=== PATIENT | female | born 1970 | race Hispanic/Latino ===

== ENCOUNTER 2023-09-27 17:27 | Inpatient (IN) | payer OTHER, BC ==
[~2023-09-27] VITALS: Ht 160 cm; Wt 78.3 kg
[2023-09-27 18:19] LABS: HEMATOCRIT 35.1 % (36-48); MEAN CORPUSCULAR HEMOGLOBIN 29.9 pg (27.0-33.0); MEAN CORPUSCULAR HGB CONC 34.8 g/dL (32.0-36.0); RED BLOOD CELL COUNT(AUTO) 4.08 MIL/uL (4.00-5.50); RED CELL DISTRIBUTION WIDTH 12.8 % (11.0-15.5)
[2023-09-27] MEDS: MORPHINE 2 MG SYG IVP ONE (18:25)
[2023-09-27] MEDS: LACTATED RINGERS 1000ML 1,000 ML IV ONE (18:25)
[2023-09-27 18:32] LABS: INR 0.94 (0.85-1.15); PROTHROMBIN TIME 11.1 SEC (9.6-11.6)
[2023-09-27 18:35] LABS: CREATININE 0.7 mg/dL (0.5-1.0); POTASSIUM 3.3 mmol/L (3.5-5.1)
[2023-09-27] MEDS ORDERED: POTASSIUM CHLORIDE 10% ELIXIR 20 MEQ/15 ML UDCUP PO PRN (19:00)
[2023-09-27] MEDS ORDERED: POTASSIUM CHLORIDE 20MEQ/100ML 100 ML IV PRN (19:00)
[2023-09-27] MEDS ORDERED: ACETAMINOPHEN 325 MG TAB PO PRN ×2 (19:00)
[2023-09-27] MEDS: FAMOTIDINE 20MG VIAL IV SCH (20:25)
[2023-09-27] MEDS: LACTATED RINGERS 1000ML 1,000 ML IV SCH (20:26)
[2023-09-27] MEDS: MORPHINE 4 MG SYG IV PRN (20:26)
[2023-09-27 21:40] VITALS: O2SAT 98
[2023-09-27 21:58] VITALS: BP 119/71; PULSE 63; RESP 16
[2023-09-27] MEDS: KCL 20 MEQ ERTAB PO PRN (23:57)
[2023-09-28] VITALS (12 sets, daily range): BP systolic 115–139; BP diastolic 63–80; PULSE 61–79; RESP 16–19; O2SAT 94–98
[2023-09-28] MEDS: ONDANSETRON 4MG INJ IV PRN (01:04)
[2023-09-28 06:11] LABS: BASOPHILS # (AUTO) 0.03 K/uL (0.00-0.20); BASOPHILS % (AUTO) 0.4 % (0.0-5.0); EOSINOPHILS # (AUTO) 0.02 K/uL (0.00-0.70); EOSINOPHILS % (AUTO) 0.2 % (0.0-8.0); HEMATOCRIT 33.9 % (36-48); IMMATURE GRANULOCYTE ABSOLUTE 0.05 K/uL (0-1); LYMPHOCYTES # (AUTO) 1.8 K/uL (1.0-4.8); LYMPHOCYTES % (AUTO) 22.1 % (21.0-51.0); MEAN CORPUSCULAR HEMOGLOBIN 29.6 pg (27.0-33.0); MEAN CORPUSCULAR HGB CONC 34.5 g/dL (32.0-36.0); MEAN CORPUSCULAR VOLUME 85.8 fL (79-99); MONOCYTES # (AUTO) 0.4 K/uL (0.1-1.0); MONOCYTES % (AUTO) 5.1 % (3.0-13.0); NEUTROPHILS # (AUTO) 5.8 K/uL (1.8-7.7); NEUTROPHILS % (AUTO) 71.6 % (40.0-77.0); PLATELET COUNT (AUTO) 245 K/uL (130-400); RED BLOOD CELL COUNT(AUTO) 3.95 MIL/uL (4.00-5.50); RED CELL DISTRIBUTION WIDTH 12.8 % (11.0-15.5)
[2023-09-28 06:20] LABS: CREATININE 0.5 mg/dL (0.5-1.0); MAGNESIUM 1.9 mg/dL (1.80-2.40); PHOSPHORUS 3.8 mg/dL (2.5-4.9); POTASSIUM 3.3 mmol/L (3.5-5.1)
[2023-09-28] MEDS: MORPHINE 2 MG SYG IV PRN (08:01)
[2023-09-29] VITALS (25 sets, daily range): BP systolic 99–131; BP diastolic 50–77; PULSE 59–84; RESP 11–20; O2SAT 97–98
[2023-09-29 06:28] LABS: BASOPHILS # (AUTO) 0.04 K/uL (0.00-0.20); BASOPHILS % (AUTO) 0.5 % (0.0-5.0); EOSINOPHILS # (AUTO) 0.07 K/uL (0.00-0.70); EOSINOPHILS % (AUTO) 0.9 % (0.0-8.0); HEMATOCRIT 37.1 % (36-48); LYMPHOCYTES # (AUTO) 1.5 K/uL (1.0-4.8); LYMPHOCYTES % (AUTO) 18.9 % (21.0-51.0); MEAN CORPUSCULAR HEMOGLOBIN 29.9 pg (27.0-33.0); MEAN CORPUSCULAR VOLUME 87.9 fL (79-99); MONOCYTES # (AUTO) 0.6 K/uL (0.1-1.0); MONOCYTES % (AUTO) 7.1 % (3.0-13.0); NEUTROPHILS # (AUTO) 5.7 K/uL (1.8-7.7); NEUTROPHILS % (AUTO) 71.3 % (40.0-77.0); PLATELET COUNT (AUTO) 226 K/uL (130-400); RED BLOOD CELL COUNT(AUTO) 4.22 MIL/uL (4.00-5.50); RED CELL DISTRIBUTION WIDTH 13.1 % (11.0-15.5); WHITE BLOOD COUNT (AUTO) 7.9 K/uL (4.8-10.8)
[2023-09-29 06:41] LABS: ALBUMIN 3.7 g/dL (3.5-5.0); BILIRUBIN,TOTAL 1.1 mg/dL (0.2-1.0); CREATININE 0.5 mg/dL (0.5-1.0); MAGNESIUM 1.6 mg/dL (1.80-2.40); POTASSIUM 3.8 mmol/L (3.5-5.1); TOTAL PROTEIN, SERUM 7.6 g/dL (6.0-8.3)
[2023-09-29 06:56] LABS: INR <= 0.93 (0.85-1.15)
[2023-09-29 06:58] LABS: PARTIAL THROMBOPLASTIN TIME 26.7 SEC (26.3-35.5)
[2023-09-29] MEDS: MAGNESIUM 2GM PREMIX 50ML 50 ML IV PRN (08:00)
[2023-09-29] MEDS ORDERED: MAGNESIUM 2GM PREMIX 50ML 50 ML IV SCH (08:00)
[2023-09-29] MEDS: CEFAZOLIN SODIUM 1 GM VIAL IVPB SCH (12:00)
[2023-09-29] MEDS ORDERED: LIDOCAINE HCL-MPF 1% 5ML AMP IJ ONE (16:09)
[2023-09-29] MEDS ORDERED: PROPOFOL 10 MG/ML 20ML VIAL IV ONE (16:10)
[2023-09-29] MEDS ORDERED: ROCURONIUM BROMIDE 10MG/1ML 5ML VL ONE (16:10)
[2023-09-29] MEDS ORDERED: MIDAZOLAM HCL 1 MG/ML 2ML VIAL ONE (16:10)
[2023-09-29] MEDS ORDERED: FENTANYL CITRATE PF 50 MCG/1 ML 2ML VIAL ONE ×2 (16:10→21:06)
[2023-09-29] MEDS ORDERED: ROPIVACAINE 0.5% 5MG/ML 30ML ONE (19:43)
[2023-09-29] MEDS ORDERED: DEXAMETHASONE SOD PHOSPHATE 10MG/ML 1ML VIAL ONE (19:44)
[2023-09-29] MEDS ORDERED: ONDANSETRON 4MG INJ ONE (19:44)
[2023-09-29] MEDS ORDERED: PHENYLEPHRINE HCL 10 MG/ML 1ML VIAL IV ONE (19:45)
[2023-09-29] MEDS: CEFAZOLIN SODIUM 1 GM VIAL IVPB ONE (20:30)
[2023-09-29] MEDS ORDERED: NEOSTIGMINE METHYLSULFATE 1MG/ML IV ONE (21:06)
[2023-09-29] MEDS ORDERED: GLYCOPYRROLATE 0.2 MG/ML 5 ML VIAL ONE (21:06)
[2023-09-30] VITALS (12 sets, daily range): BP systolic 91–118; BP diastolic 50–72; PULSE 56–74; RESP 16–24; O2SAT 96–99
[2023-09-30 05:20] LABS: BASOPHILS # (AUTO) 0.01 K/uL (0.00-0.20); BASOPHILS % (AUTO) 0.1 % (0.0-5.0); HEMATOCRIT 34.9 % (36-48); IMMATURE GRANULOCYTE ABSOLUTE 0.07 K/uL (0-1); LYMPHOCYTES # (AUTO) 0.7 K/uL (1.0-4.8); LYMPHOCYTES % (AUTO) 9.6 % (21.0-51.0); MEAN CORPUSCULAR HGB CONC 34.7 g/dL (32.0-36.0); MEAN CORPUSCULAR VOLUME 86.6 fL (79-99); MONOCYTES # (AUTO) 0.1 K/uL (0.1-1.0); MONOCYTES % (AUTO) 1.4 % (3.0-13.0); NEUTROPHILS # (AUTO) 6.5 K/uL (1.8-7.7); PLATELET COUNT (AUTO) 232 K/uL (130-400); RED BLOOD CELL COUNT(AUTO) 4.03 MIL/uL (4.00-5.50); RED CELL DISTRIBUTION WIDTH 12.8 % (11.0-15.5); WHITE BLOOD COUNT (AUTO) 7.4 K/uL (4.8-10.8)
[2023-09-30 05:48] LABS: ALBUMIN 3.4 g/dL (3.5-5.0); BILIRUBIN,TOTAL 0.6 mg/dL (0.2-1.0); CREATININE 0.6 mg/dL (0.5-1.0); MAGNESIUM 2.1 mg/dL (1.80-2.40); POTASSIUM 4.3 mmol/L (3.5-5.1); TOTAL PROTEIN, SERUM 7.4 g/dL (6.0-8.3)
[2023-09-30] MEDS ORDERED: LACTULOSE 20 GM/30 ML UDCUP PO PRN (14:00)
[2023-09-30] MEDS: TRAMADOL HCL 50 MG TABLET PO PRN (14:17)
[2023-09-30] MEDS: ACETAMINOPHEN WITH CODEINE 1 TAB TAB PO PRN (20:02)
[2023-09-30] MEDS: HYDROXYZINE 25 MG TABLET PO SCH (23:26)
[2023-10-01 04:00] VITALS: BP 105/67; PULSE 58; RESP 20
[2023-10-01 05:55] LABS: BASOPHILS # (AUTO) 0.02 K/uL (0.00-0.20); BASOPHILS % (AUTO) 0.2 % (0.0-5.0); EOSINOPHILS # (AUTO) 0.02 K/uL (0.00-0.70); EOSINOPHILS % (AUTO) 0.2 % (0.0-8.0); IMMATURE GRANULOCYTE ABSOLUTE 0.08 K/uL (0-1); LYMPHOCYTES # (AUTO) 1.7 K/uL (1.0-4.8); LYMPHOCYTES % (AUTO) 16.8 % (21.0-51.0); MEAN CORPUSCULAR HEMOGLOBIN 29.9 pg (27.0-33.0); MEAN CORPUSCULAR HGB CONC 34.4 g/dL (32.0-36.0); MONOCYTES # (AUTO) 0.7 K/uL (0.1-1.0); MONOCYTES % (AUTO) 6.4 % (3.0-13.0); NEUTROPHILS # (AUTO) 7.8 K/uL (1.8-7.7); NEUTROPHILS % (AUTO) 75.6 % (40.0-77.0); PLATELET COUNT (AUTO) 246 K/uL (130-400); RED BLOOD CELL COUNT(AUTO) 3.91 MIL/uL (4.00-5.50); RED CELL DISTRIBUTION WIDTH 13.2 % (11.0-15.5); WHITE BLOOD COUNT (AUTO) 10.3 K/uL (4.8-10.8)
[2023-10-01 06:16] LABS: ALBUMIN 3.1 g/dL (3.5-5.0); BILIRUBIN,TOTAL 0.5 mg/dL (0.2-1.0); CREATININE 0.6 mg/dL (0.5-1.0); MAGNESIUM 1.9 mg/dL (1.80-2.40); POTASSIUM 3.4 mmol/L (3.5-5.1)
[2023-10-01 08:00] VITALS: BP 96/62; PULSE 60; RESP 16
[2023-10-01] MEDS: POLYETHYLENE GLYCOL 3350 17 GM POWD.PACK PO SCH (08:27)
[2023-10-01 10:30] VITALS: O2SAT 99
== END 2023-10-01 12:23 | disposition home or self-care (01) | DRG 512 ==
LOC: EDH 17:27 → EDHIP 18:55 → 3BH 21:14
PROVIDERS: ADMIT Internal Medicine; ATTEND Internal Medicine
PROC: 0PSKXZZ Reposition Right Ulna, External Approach (ICD-10-PCS; 2023-09-29)
PROC: 2W3CX1Z Immobilization of Right Lower Arm using Splint (ICD-10-PCS; 2023-09-29)
PROC: 0PSH04Z Reposition Right Radius with Internal Fixation Device, Open Approach (ICD-10-PCS; principal; 2023-09-29 19:54)
DX: S52.591A Other fractures of lower end of right radius, initial encounter for closed fracture (principal); S52.691A Other fracture of lower end of right ulna, initial encounter for closed fracture; E87.6 Hypokalemia; E78.5 Hyperlipidemia, unspecified; I10 Essential (primary) hypertension; W01.0XXA Fall on same level from slipping, tripping and stumbling without subsequent striking against object, initial encounter; Y93.89 Activity, other specified; Y92.89 Other specified places as the place of occurrence of the external cause; Y99.8 Other external cause status
CPT/HCPCS: 36415; 71045; 73100; 73110; 73600; 74176; 80048; 80053; 83735; 84100; 85025; 85027; 85610; 85730; 86850; 86900; 86901; 93005; 96361; 96374; 96375; G0378; J0690; J1100; J2250; J2270; J2371; J2405; J2704; J2710; J2795; J3010; J3475; J3490; J7120; A4649; C1713; C1776

== ENCOUNTER 2023-10-04 21:07 | Emergency (ER) | payer BC, OTHER ==
[~2023-10-04] VITALS: Ht 160 cm; Wt 77.1 kg
[2023-10-04] MEDS ORDERED: IBUP-1493 PO (22:09)
[2023-10-04 22:40] VITALS: BP 146/82; PULSE 74; RESP 18; O2SAT 96
== END 2023-10-04 22:42 | disposition home or self-care (01) ==
LOC: EDH 21:07
DX: S62.101A Fracture of unspecified carpal bone, right wrist, initial encounter for closed fracture (principal); X58.XXXA Exposure to other specified factors, initial encounter; Y93.89 Activity, other specified; Y92.89 Other specified places as the place of occurrence of the external cause; Y99.8 Other external cause status
CPT/HCPCS: 29125